=== PATIENT | female | born 1965 | race Two or more races ===

== ENCOUNTER 2018-03-14 06:05 | Day surgery (SDC) | payer BC ==
[2018-03-13 12:25] VITALS: BMI 24.7
[2018-03-14] MEDS ORDERED: BUPIVACAINE HCL/PF 2.5 MG/ML - 30 ML VIAL IJ ONE (07:18)
[2018-03-14] MEDS ORDERED: MIDAZOLAM HCL 2 MG/2 ML SINGLE DOSE VIAL ONE (07:24)
[2018-03-14] MEDS ORDERED: oxyCODONE HCL 5 MG TABLET PO PRN (07:53)
[2018-03-14] MEDS ORDERED: ONDANSETRON 4 MG/2 ML VIAL IVPUSH PRN (07:53)
[2018-03-14] MEDS ORDERED: SUCCINYLCHOLINE CHLORIDE 200 MG/10 ML VIAL ONE (07:55)
[2018-03-14] MEDS ORDERED: PROPOFOL 20 ML ONE ×2 (07:55)
[2018-03-14] MEDS ORDERED: LACTATED RINGERS SOLUTION 1,000 ML IV SCH (08:00)
[2018-03-14] MEDS ORDERED: CEFAZOLIN 1 GM in DEXTROSE 5%-WATER - 100 ML IVPB ONE (08:33)
[2018-03-14] MEDS ORDERED: VANCOMYCIN 1,000 MG in DEXTROSE 5%-WATER - 250 ML IVPB ONE (08:33)
[2018-03-14] MEDS ORDERED: DEXAMETHASONE SOD PHOSPHATE 4 MG/1 ML VIAL ONE (08:54)
[2018-03-14] MEDS ORDERED: ONDANSETRON 4 MG/2 ML VIAL ONE ×2 (08:54→10:36)
[2018-03-14] MEDS ORDERED: ceFAZolin SODIUM 1 GM VIAL ONE (08:54)
[2018-03-14] MEDS ORDERED: methylPREDNISolone ACET (DEPO) 40 MG/1 ML VIAL ONE (09:48)
[2018-03-14] MEDS ORDERED: PROMETHAZINE HCL 25 MG/1 ML VIAL IVPUSH ONE (11:17)
[2018-03-14] MEDS ORDERED: ACETAMINOPHEN 500 MG TABLET (FP) ONE (12:36)
[2018-03-14 12:43] VITALS: TEMP 97.5
[2018-03-14 13:44] VITALS: BP 113/58; PULSE 54
--- NOTE | 2018-03-14 13:45 | OP ---
Operative Note - Note: Operative Date: 03/14/18 Pre-Operative Diagnosis: Right knee medial meniscus tear Operation: Surgical arthroscopy right knee Findings: Tricompartment DJD right knee Post-Operative Diagnosis: Other (Tricompartment DJD right knee) Surgeon: Rodney Pinedo Anesthesiologist/EMPLOYEE WELFARE MANAGER: Mireille Barnett Anesthesia: General (LMA) Estimated Blood Loss (mls): 0 Fluid Volume Replaced (mls): 500 Operative Report Dictated: Yes
[2018-03-14] MEDS ORDERED: PATIENT'S OWN MEDICATION (NON-FORMULARY) (Lisinopril [Lisinopril] 30 MG) PO SCH (22:00)
--- NOTE | 2018-03-15 09:06 | OP ---
Date of Operation: 03/14/2018 Pre-Operative Diagnosis: 1. Left knee medial meniscus tear, 2. Left knee osteoarthritis Post-Operative Diagnosis: 1. Left knee osteoarthritis Surgical Procedure: 1. Surgical arthroscopy left knee, 2. Irrigation, 3. Debridement. Anesthesia: Sedation. Position: Supine. Incision: Standard anteromedial & anterolateral knee arthroscopy portals. Tourniquet Pressure: 250mmHg. Tourniquet Time: 39 minutes. Estimated Blood Loss: 0cc. Intravenous Fluid: 500mL. Specimens: None. Drains: None. Complications: None. Urine output: None. Bacteriology: None. Transfusions: None. Closure: 3-0 Biosyn. Indications: The patient was indicated for a surgical arthroscopy of the left knee with possible partial medial meniscectomy to facilitate improved motion and mobilization, and to prevent complications associated with a sedentary lifestyle. The patient was identified in the holding area by her armband. A long discussion was held with the patient (in the presence of her family) regarding the risks, benefits and alternatives of the above-named procedure. Risks include but are not limited to: pain, bleeding, infection, damage to surrounding structures (including nerves, blood vessels, skin, ligaments, tendons and bone), wound complications, need for further surgery, blood clots, myocardial infarction, pulmonary embolism, anaesthesia complications, compartment syndrome, limb loss, limp, loss of function, and . Benefits as mentioned above. Alternatives include no surgery. All questions were answered. The patient and her family understood and agreed to the procedure. Informed consent was obtained, witnessed and verified. The patients correct operative limb the left lower extremity was marked, and the patient was taken to the operating room after being seen by the anesthesia and nursing staff. Procedure: The patient was brought into the operating room, placed on the OR table and secured with a safety strap. Consent and the operative site was again verified with the patient and nursing and anaesthesia staff. Anaesthesia was then administered without complication. 2g IV Ancef was administered. A time out was done led by me, the attending surgeon. The patient was positioned with bony prominences well padded, a tourniquet was placed proximally and set to 250mmHg. A lateral leg post was assembled adjacent to the proximal-thigh of the operative limb. The operative limb was prepped in standard sterile fashion using betadine prep & scrub, wiped off with alcohol, and then DuraPrep applied. The operative limb was then free draped. Time out was again done, the limb was exsanguinated using an Esmarch, the tourniquet was inflated, and the case began. Surface anatomy of the knee was drawn, marking the patella, patellar tendon, and medial & lateral joint lines. With the knee flexed to 45 degrees, a standard anterolateral arthroscopy portal was made using an 11 blade. A blunt trocar was then inserted into the knee at the same angle as the incision. The blunt trocar was then slipped into the suprapatellar pouch as the knee was slowly extended. The trocar was removed through its overlying canula, and the arthroscope was inserted in its place. The fluid inflow, which had already been primed, was then attached to the canula along with the outflow suction tubing. The knee was then insufflated with normal saline solution containing epinephrine. The suprapatellar pouch was then inspected with no evidence of synovitis. The lateral retro-patellar surfaces revealed Grade 4 chondromalacia with exposed subchondral bone. The cartilage overlying the trochlear groove was fully intact. Next, the arthroscope was delivered into the medial gutter of the knee as the knee was slowly flexed. No loose bodies were seen. With gentle valgus force applied to the knee, the arthroscope was slipped into the medial compartment. Grade 4 Chondromalacia of the medial femoral condyle was immediately evident with exposed subchondral bone. Grade 3 chondromalacia of the medial tibial plateau was immediately evident with deep fissures and no obviously exposed subchondral bone. The medial meniscus appeared totally intact. Next, an 18-gauge spinal needle was used to plan an anteromedial portal. With the correct position and working trajectory verified, the spinal needle was removed, and an 11 blade was utilized to create a standard anteromedial arthroscopy portal. A blunt trocar was then inserted via the anteromedial portal into the medial compartment of the knee under direct arthroscopic visualization via the anterolateral portal. A probe was inserted via the anteromedial portal demonstrating the stability of the medial meniscus. Next, the arthroscope was delivered into the intercondylar notch. The ACL was visualized and appeared completely intact. The probe was used to demonstrate the ACLs stability. The PCL was not visualized. Gentle varus stress was applied to the knee as the arthroscope was delivered into the lateral compartment. Grade 4 chondromalacia of the lateral tibial plateau was visualized with exposed subchondral bone. The lateral meniscus was visualized and appeared intact, as did the lateral femoral condyle. The arthroscope was then delivered into the lateral gutter of the knee where no loose bodies were seen. The arthroscope was then returned to the suprapatellar pouch as the knee was gently extended. The knee was irrigated with over 3L of normal saline solution. Intra-operative photographs were captured using the arthroscope at numerous steps throughout the case. Hemostasis was assured, and the wounds were closed primarily using 3-0 Biosyn sutures. A sterile, compressive dressing was applied. The tourniquet was released at a final time of 39 minutes. The sponge and needle counts were correct at the end of the case and I the attending was present and scrubbed throughout the case. The patient was then transferred to the recovery room in stable condition, as per the anesthesiology team, having tolerated the procedure well. MD DEBRA [id number] MTDD
== END 2018-03-14 14:00 | disposition home or self-care (01) ==
LOC: FASU 06:05
PROVIDERS: ATTEND Orthopaedic Surgery Adult Reconstructive Orthopaedic Surgery
PROC: 0SBD4ZZ Excision of Left Knee Joint, Percutaneous Endoscopic Approach (ICD-10-PCS; principal; 2018-03-14 09:26)
DX: M17.12 Unilateral primary osteoarthritis, left knee (principal); M94.262 Chondromalacia, left knee
CPT/HCPCS: 84703; 94760

== ENCOUNTER 2018-12-19 08:47 | Day surgery (SDC) | payer BC ==
[2018-12-18 13:01] VITALS: BMI 26.4
--- NOTE | 2018-12-19 10:13 | PN ---
Progress Note (short form) - Note Progress Note: 53F s/p surgical arthroscopy right knee POD #0. -Pain control: Naproxyn PRN. -Incentive spirometry. -No chemical DVT PPx. -WBAT RLE. -Keep dressing clean & dry. -d/c dressing on Monday; cover incision sites with waterproof Band-Aids; OK to resume showering thereafter. -Cane vs crutches if needed. -f/u in [facility] [place] [facility] on 12/27/2017; call for appointment; . Rodney Pinedo MD (Orthopaedic Surgery).
--- NOTE | 2018-12-19 10:14 | OP ---
Operative Note - Note: Operative Date: 12/19/18 Pre-Operative Diagnosis: Right knee medial & lateral meniscus derangements Operation: Surgical arthroscopy right knee Findings: Right Knee: Grade 3 Chondromalacia MFC No evidence of medial or lateral meniscus tears Tourniquet Pressure: 250mmHg Tourniquet Time: 17 minutes Post-Operative Diagnosis: Same as Pre-op Surgeon: Rodney Pinedo Anesthesiologist/CASTING REPAIRER: Darci Escalona Anesthesia: General Estimated Blood Loss (mls): 0 Fluid Volume Replaced (mls): 1,000 (Crystalloid) Operative Report Dictated: Yes
[2018-12-19] MEDS ORDERED: BUPIVACAINE HCL/PF 2.5 MG/ML - 30 ML VIAL IJ ONE (10:27)
[2018-12-19] MEDS ORDERED: BUPIVACAINE HCL/PF 0.5% (5MG/ML) 10 ML VIAL ONE (10:28)
[2018-12-19] MEDS ORDERED: EPINEPHrine 1:1,000 1 MG/1 ML - 30ML VIAL (INJECTION) ONE (10:28)
[2018-12-19] MEDS ORDERED: methylPREDNISolone ACET (DEPO) 40 MG/1 ML VIAL ONE ×2 (10:28→11:15)
[2018-12-19] MEDS ORDERED: PROPOFOL 20 ML ONE (10:48)
[2018-12-19] MEDS ORDERED: ceFAZolin SODIUM 1 GM VIAL ONE (10:53)
[2018-12-19] MEDS ORDERED: ONDANSETRON 4 MG/2 ML VIAL ONE (11:09)
[2018-12-19] MEDS ORDERED: DEXAMETHASONE SOD PHOSPHATE 4 MG/1 ML VIAL ONE (11:09)
[2018-12-19] MEDS ORDERED: GLYCOPYRROLATE 0.2 MG/1 ML VIAL ONE (11:19)
[2018-12-19] MEDS ORDERED: BUPIVACAINE HCL/PF 0.25% (2.5MG/ML) 10 ML VIAL IJ ONE (11:22)
[2018-12-19] MEDS ORDERED: methylPREDNISolone ACET (DEPO) 40 MG/1 ML VIAL IM ONE (11:22)
[2018-12-19] MEDS ORDERED: ACETAMINOPHEN 325 MG TABLET (FP) PO PRN (11:51)
[2018-12-19] MEDS ORDERED: oxyCODONE HCL 5 MG TABLET PO PRN (11:51)
[2018-12-19] MEDS ORDERED: ONDANSETRON 4 MG/2 ML VIAL IVPUSH PRN (11:51)
[2018-12-19] MEDS ORDERED: LACTATED RINGERS SOLUTION 1,000 ML IV SCH (12:00)
[2018-12-19 13:04] VITALS: TEMP 98.1
[2018-12-19 14:20] VITALS: BP 138/80; PULSE 65
--- NOTE | 2018-12-19 15:20 | OP ---
DATE OF OPERATION: 12/19/2018 PREOPERATIVE DIAGNOSIS: Right medial and lateral meniscus tears. POSTOPERATIVE DIAGNOSIS: Grade 2 chondromalacia at medial femoral condyle. No evidence of meniscus tear medially or laterally. SURGICAL PROCEDURE: Surgical arthroscopy, right knee, with general irrigation and debridement. TOURNIQUET PRESSURE: 250 mmHg. TOURNIQUET TIME: 17 minutes. INJECTION PROVIDED: Marcaine 0.25% without epinephrine, 10 mL, and Depo-Medrol, 2 mL (40 mg per mL). SURGEON: Rodney Pinedo MD ANESTHESIOLOGIST: Darci Escalona DO CLOSURE: Nylon 3-0. DICTATION ENDS HERE Rodney Pinedo MD [id number]
== END 2018-12-19 14:30 | disposition home or self-care (01) ==
LOC: FASU 08:47
PROVIDERS: ATTEND Orthopaedic Surgery Adult Reconstructive Orthopaedic Surgery
PROC: 0SBC4ZZ Excision of Right Knee Joint, Percutaneous Endoscopic Approach (ICD-10-PCS; principal; 2018-12-19 11:13)
DX: M94.261 Chondromalacia, right knee (principal)
CPT/HCPCS: 94760